=== PATIENT | female | born 1980 | race African-American/Black ===

== ENCOUNTER 2024-04-24 11:59 | Emergency (ER) | payer MEDICAID ==
[~2024-04-24] VITALS: Ht 170.2 cm; Wt 81.0 kg
[2024-04-24 12:02] VITALS: BP 116/79; PULSE 83; RESP 16; TEMP 98.9; O2SAT 98
== END 2024-04-24 20:00 | disposition home or self-care (01) ==
LOC: ER 11:59
DX: R11.2 Nausea with vomiting, unspecified (principal); R19.7 Diarrhea, unspecified; Z88.0 Allergy status to penicillin; Z87.891 Personal history of nicotine dependence; J45.909 Unspecified asthma, uncomplicated; F14.10 Cocaine abuse, uncomplicated
CPT/HCPCS: 99283